=== PATIENT | female | born 1990 | race Caucasian/White ===

== ENCOUNTER 2020-07-01 15:21 | Emergency (ER) | payer OTHER, SELFPAY ==
--- NOTE | ~2020-07-01 | XR_ITS ---
EXAMINATION: XR ankle LT min 3V DATE: 07/01/2020 15:57 INDICATION: Left ankle pain TECHNIQUE: Anteroposterior, lateral, mortise, and additional oblique view of the ankle were obtained. COMPARISON: None. FINDINGS: There is lateral soft tissue swelling of ankle. No fracture is identified. Bone alignment i s normal. IMPRESSION: 1. Ankle soft tissue swelling without acute osseous abnormality. Reviewed, dictated and finalized at location A.
[2020-07-01 15:33] VITALS: BP 125/77; PULSE 91; RESP 16; TEMP 36.5; O2SAT 99
--- NOTE | 2020-07-01 16:09 | ED.LOWEXIN ---
HPI - Extremity Injury (Lower) General Chief Complaint: Extremity Injury, Lower Stated Complaint: left ankle pain Time Seen by Provider: 07/01/20 15:36 Source: patient Mode of arrival: ambulatory Limitations: no limitations History of Present Illness HPI Narrative: Patient presents today complaining of left ankle injury. She twisted her ankle while walking on some stairs last night. Denies numbness or tingling in the leg or foot. Currently rates her pain 8/10. She took 1 dose of naproxen without much relief. She has been walking with a limp, with increased pain. MD complaint: ankle injury Related Data Home Medications Medication Instructions Recorded Confirmed No Home Medications 07/01/20 07/01/20 Allergies Allergy/AdvReac Type Severity Reaction Status Date / Time PSEUDOEPHEDRINE HCL Allergy RASH Uncoded 07/01/20 15:35 Review of Systems Review of Systems: Narrative: CONSTITUTIONAL: Denies body aches, fever, chills, or sweats. EYES: Denies visual changes, redness, or discharge. ENT: Denies rhinorrhea, congestion, sore throat, or otalgia. CARDIOVASCULAR: Denies chest pain, palpitations, or edema. RESPIRATORY: Denies cough or dyspnea. GASTROINTESTINAL: Denies abdominal pain, nausea, vomiting, or diarrhea. GENITOURINARY: Denies dysuria or hematuria. SKIN: Denies rash, itching, or wounds. MUSCULOSKELETAL: Denies back pain, or myalgia. + Left ankle injury NEUROLOGIC: Denies headache, numbness, tingling, or weakness. PSYCH: Denies depression or anxiety. PMFSH Comments At time of signature, I have reviewed and agree with nursing past medical, surgical, social and family history unless otherwise noted. Please see nursing chart for further information. There is no relevant family history pertinent to the presenting complaint Exam Narrative: Exam Narrative: GENERAL: Well-appearing, well-nourished, and in no acute distress. HEAD: Normocephalic, atraumatic. EYES: EOMI. No redness or drainage. Conjunctivae normal. ENT: Mucous membranes pink and moist. NECK: Normal AROM. CHEST: No respiratory distress. EXTREMITIES: left ankle: Moderate edema laterally. No bony tenderness to medial or lateral malleolus. Soft tissue tenderness to lateral and anterior ankle. No pain with flexion and extension of the ankle. Increased pain with internal and external rotation. Distal sensation intact. Capillary refill normal. Pedal pulse normal. SKIN: Warm, dry, no rash. Capillary refill normal. Normal skin turgor. NEURO: No focal deficits. Alert and oriented x3. Gait steady. PSYCH: Normal affect. No signs of depression or anxiety. Course Vital Signs Vital signs: Vital Signs Temperature 97.7 F 07/01/20 15:33 Pulse Rate 91 07/01/20 15:33 Respiratory Rate 16 07/01/20 15:33 Blood Pressure 125/77 07/01/20 15:33 Pulse Oximetry 99 07/01/20 15:33 Temperature 97.7 F 07/01/20 15:33 Pulse Rate 91 07/01/20 15:33 Respiratory Rate 16 07/01/20 15:33 Blood Pressure 125/77 07/01/20 15:33 Pulse Oximetry 99 07/01/20 15:33 Reviewed. Pt has been instructed to follow up with her PCP regarding her elevated blood pressure today. MDM - Extremity Injury (Lower) Differential Diagnosis Differential diagnosis: Likely ankle sprain and strain, ankle fracture and other (Foot sprain, foot fracture) Imaging Data Radiologist's impression: ITS Impressions Ankle X-Ray 07/01/20 15:59 IMPRESSION: 1. Ankle soft tissue swelling without acute osseous abnormality. Critical Care Time Critical Care Time Critical Care Time: No Discharge Plan Discharge Clinical Impression: Left ankle sprain Qualifiers: Encounter type: initial encounter Involved ligament of ankle: unspecified ligament Qualified Code(s): S93.402A - Sprain of unspecified ligament of left ankle, initial encounter Patient Disposition: Home, Self-Care Condition: Stable Instructions: Ankle Sprain (DC) Additional Instructions:
== END 2020-07-01 16:17 | disposition home or self-care (01) ==
PROVIDERS: Emergency Provider Nurse Practitioner
DX: S93.402A Sprain of unspecified ligament of left ankle, initial encounter (principal); X50.9XXA Other and unspecified overexertion or strenuous movements or postures, initial encounter
CPT/HCPCS: 73610; 99213; G0463

== ENCOUNTER 2021-09-27 10:36 | Emergency (ER) | payer OTHER, SELFPAY ==
[2021-09-27 11:09] VITALS: BP 116/76; PULSE 81; RESP 16; TEMP 36.9; O2SAT 99
--- NOTE | 2021-09-27 11:53 | ED.BACK ---
HPI - Back Pain/Injury General Chief Complaint: Back Pain/Injury Stated Complaint: back pain Time Seen by Provider: 09/27/21 11:42 Source: patient and RN notes reviewed Mode of arrival: ambulatory Limitations: no limitations History of Present Illness HPI Narrative: Patient presents today complaining of upper back pain x6 days. She fell in the shower prior to onset of symptoms and states her back pain has been worsening day by day. She currently rates her pain 8/10 which increases with movement. She has been occasionally taking Aleve without relief. Denies numbness or tingling in the extremities. MD elicited complaint: back pain Related Data Allergies Allergy/AdvReac Type Severity Reaction Status Date / Time PSEUDOEPHEDRINE HCL Allergy RASH Uncoded 09/27/21 11:55 Review of Systems Review of Systems: CONSTITUTIONAL: Denies body aches, fever, chills, or sweats. EYES: Denies visual changes, redness, or discharge. ENT: Denies rhinorrhea, congestion, sore throat, or otalgia. CARDIOVASCULAR: Denies chest pain, palpitations, or edema. RESPIRATORY: Denies cough or dyspnea. GASTROINTESTINAL: Denies abdominal pain, nausea, vomiting, or diarrhea. GENITOURINARY: Denies dysuria or hematuria. SKIN: Denies rash, itching, or wounds. MUSCULOSKELETAL: Denies joint pain, or myalgia.+ Back pain NEUROLOGIC: Denies headache, numbness, tingling, or weakness. PSYCH: Denies depression or anxiety. PMFSH Comments At time of signature, I have reviewed and agree with nursing past medical, surgical, social and family history unless otherwise noted. Please see nursing chart for further information. There is no relevant family history pertinent to the presenting complaint Exam Narrative: GENERAL: Well-appearing, well-nourished, and in no acute distress. HEAD: Normocephalic, atraumatic. EYES: EOMI. No redness or drainage. Conjunctivae normal. ENT: Mucous membranes pink and moist. NECK: Normal AROM. Supple. No lymphadenopathy. Neck is nontender. CHEST: No respiratory distress. MUSCULOSKELETAL: No bony tenderness of the thoracic spine. Patient has muscular tenderness of the bilateral trapezius. Distal sensation intact. Capillary refill normal. Radial pulses normal. Full range of motion of the arms and shoulders with increased pain in the trapezius. EXTREMITIES: Normal range of motion. No edema. SKIN: Warm, dry, no rash. Capillary refill normal. Normal skin turgor. NEURO: No focal deficits. Alert and oriented x3. Gait steady. PSYCH: Normal affect. No signs of depression or anxiety. Course Vital Signs Vital signs: Vital Signs Temperature 98.4 F 09/27/21 11:09 Pulse Rate 81 09/27/21 11:09 Respiratory Rate 16 09/27/21 11:09 Blood Pressure 116/76 09/27/21 11:09 Pulse Oximetry 99 09/27/21 11:09 Temperature 98.4 F 09/27/21 11:09 Pulse Rate 81 09/27/21 11:09 Respiratory Rate 16 09/27/21 11:09 Blood Pressure 116/76 09/27/21 11:09 Pulse Oximetry 99 09/27/21 11:09 Reviewed MDM - Back Pain/Injury Differential Diagnosis Differential diagnosis: Likely other (Muscle strain, muscle spasm) Critical Care Time Critical Care Time Critical Care Time: No Discharge Plan Discharge Clinical Impression: Strain of trapezius muscle Qualifiers: Encounter type: initial encounter Laterality: unspecified laterality Qualified Code(s): S46.819A - Strain of other muscles, fascia and tendons at shoulder and upper arm level, unspecified arm, initial encounter Patient Disposition: Home, Self-Care Condition: Stable Instructions: Muscle Spasm (ED) Additional Instructions: Take the Flexeril and prednisone as directed. Do not drive within 8 hours of taking the Flexeril as it can make you drowsy. Use a heating pad to help relax your muscles as well. Take an anti-inflammatory such as Aleve or ibuprofen. Follow-up with your doctor next week if symptoms are not improving. Patient Language: Estonian Prescrip
== END 2021-09-27 12:00 | disposition home or self-care (01) ==
PROVIDERS: Emergency Provider Nurse Practitioner
DX: S46.819A Strain of other muscles, fascia and tendons at shoulder and upper arm level, unspecified arm, initial encounter (principal); W19.XXXA Unspecified fall, initial encounter
CPT/HCPCS: 99213; G0463